=== PATIENT | female | born 1980 | race Caucasian/White ===

== ENCOUNTER 2016-12-06 10:44 | Emergency (ER) | payer OTHER ==
[~2016-12-06] VITALS: Ht 167.6 cm; Wt 63.1 kg
[2016-12-06 10:46] VITALS: TEMP 36.6; Ht 167.6 cm; Wt 63.1 kg
[2016-12-06] MEDS ORDERED: BCTROWC EXT (11:03)
[2016-12-06] MEDS ORDERED: OXYC-57 PO (11:05)
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
[2016-12-06] MEDS ORDERED: BCPILLS PO (11:23)
[2016-12-06 11:31] VITALS: BP 128/76; PULSE 64; O2SAT 98
== END 2016-12-06 11:38 | disposition home or self-care (01) ==
LOC: C.EDB 10:46 → C.EDD 11:38
DX: T23.202A Burn of second degree of left hand, unspecified site, initial encounter (principal); T20.20XA Burn of second degree of head, face, and neck, unspecified site, initial encounter; X03.0XXA Exposure to flames in controlled fire, not in building or structure, initial encounter; T31.0 Burns involving less than 10% of body surface; Y92.89 Other specified places as the place of occurrence of the external cause; Z82.49 Family history of ischemic heart disease and other diseases of the circulatory system; Z80.9 Family history of malignant neoplasm, unspecified; Z87.891 Personal history of nicotine dependence; Z79.3 Long term (current) use of hormonal contraceptives